=== PATIENT | male | born 1985 | race Caucasian/White ===

== ENCOUNTER → 2016-12-11 | Outpatient (CLI) | payer OTHER ==
--- NOTE | 2016-12-11 23:14 | MR ---
EXAMINATION TYPE: MR lumbar spine wo con DATE OF EXAM: 12/11/2016 COMPARISON: 01/19/2014 HISTORY: Low back pain TECHNIQUE: Multiplanar, multisequence images of the lumbar spine were acquired. Lumbar vertebra have normal alignment. There is some narrowing and decreased signal in the disks at L 3-4 and L5-S1. There are posterior disc herniations at L3-4 L2-3 and to the spinal canal. L2-3 disc h erniation is slightly to the right side. There is no paraspinal mass. There is no compression fractur e. I see no focal bone destruction. The neural foramina are fairly well-maintained. IMPRESSION: There is broad-based posterior right sided L2-3 lumbar disc herniation with impingement on the latera l recess. There is posterior concentric L3 for disc herniation. No significant spinal stenosis. No fr acture. There is developmentally adequate spinal canal and no significant spinal stenosis seen.
== END ==
LOC: RADMRIMAIN 16:36
PROVIDERS: ATTEND Family Medicine
DX: M51.26 Other intervertebral disc displacement, lumbar region (principal)
CPT/HCPCS: 72148

== ENCOUNTER 2020-02-26 04:47 | Emergency (ER) | payer OTHER ==
[2020-02-26 04:57] VITALS: BP 142/89; PULSE 110; RESP 18; TEMP 97.5
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
--- NOTE | 2020-02-26 05:19 | XR ---
EXAM: XR Right Wrist, 2 Views CLINICAL HISTORY: Right wrist pain. TECHNIQUE: Frontal and lateral views of the right wrist. COMPARISON: No previous study. FINDINGS: Bones/joints: No acute fracture, dislocation, or destructive process is noted. The scaphoid bone is unremarkable. Soft tissues: Soft tissues are within normal limits. No radiopaque foreign body. IMPRESSION: No acute fracture, dislocation, or destructive process is noted.
--- NOTE | 2020-02-26 05:19 | XR ---
EXAM: XR Right Forearm, 2 Views CLINICAL HISTORY: Pain. TECHNIQUE: Frontal and lateral views of the right forearm. COMPARISON: No previous study. FINDINGS: Bones/joints: No acute fracture, dislocation, or destructive process. Right elbow joint is intact. Soft tissues: Unremarkable. Other findings: Anatomic alignment of the right forearm is unremarkable. IMPRESSION: No acute fracture or dislocation.
--- NOTE | 2020-02-26 05:20 | XR ---
EXAM: XR Right Hand Complete, 3 or More Views CLINICAL HISTORY: Right hand pain. TECHNIQUE: Frontal, lateral and oblique views of the right hand. COMPARISON: No previous study. FINDINGS: Bones/joints: No acute fracture, dislocation, or destructive process is noted. Soft tissues: The soft tissues are unremarkable. No radiopaque foreign body. Other findings: Anatomic alignment is normal. IMPRESSION: No acute fracture, dislocation, or destructive process.
== END 2020-02-26 05:53 | disposition home or self-care (01) ==
LOC: EC 04:47
DX: M25.531 Pain in right wrist (principal); F17.200 Nicotine dependence, unspecified, uncomplicated; F41.9 Anxiety disorder, unspecified; F31.9 Bipolar disorder, unspecified; Z86.69 Personal history of other diseases of the nervous system and sense organs; M79.7 Fibromyalgia; Z79.899 Other long term (current) drug therapy; Z79.1 Long term (current) use of non-steroidal anti-inflammatories (NSAID); V29.9XXA Motorcycle rider (driver) (passenger) injured in unspecified traffic accident, initial encounter; Y92.89 Other specified places as the place of occurrence of the external cause
CPT/HCPCS: 99284

== ENCOUNTER 2020-06-20 12:36 | Emergency (ER) | payer OTHER ==
[2020-06-20 12:48] VITALS: RESP 18; TEMP 98
[2020-06-20] MEDS ORDERED: DIPH,PERTUS(ACELL)TETVAC-LF 0.5 ML VIAL IM ONE (13:32)
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
[2020-06-20 15:03] VITALS: BP 116/79; PULSE 86
[2020-06-20] MEDS ORDERED: LIDOCAINE 1% INJ 10MG/ML (20 ML MDV) SQ ONE (15:15)
[2020-06-20] MEDS ORDERED: CEPHALEXIN 500MG STARTER PACK 4 CAP BTL PO STA (15:34)
== END 2020-06-20 15:43 | disposition home or self-care (01) ==
LOC: EC 12:36
DX: S02.19XA Other fracture of base of skull, initial encounter for closed fracture (principal); S01.112A Laceration without foreign body of left eyelid and periocular area, initial encounter; M54.2 Cervicalgia; Z23 Encounter for immunization; F31.9 Bipolar disorder, unspecified; F41.9 Anxiety disorder, unspecified; F17.200 Nicotine dependence, unspecified, uncomplicated; Z79.899 Other long term (current) drug therapy; V43.52XA Car driver injured in collision with other type car in traffic accident, initial encounter; Y92.410 Unspecified street and highway as the place of occurrence of the external cause
CPT/HCPCS: 71046; 72125; 70486; 90715; 70450; 99284; 90471; 12011; J2001

== ENCOUNTER 2021-01-09 12:47 | Emergency (ER) | payer OTHER ==
[2021-01-09] MEDS ORDERED: LORazepam 1 MG TAB PO STA (13:15)
[2021-01-09 13:36] VITALS: BP 117/66; PULSE 107; RESP 19; TEMP 98.6
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
== END 2021-01-09 14:53 | disposition home or self-care (01) ==
LOC: EC 12:47
DX: F41.0 Panic disorder [episodic paroxysmal anxiety] (principal); F41.9 Anxiety disorder, unspecified; F31.9 Bipolar disorder, unspecified; F17.200 Nicotine dependence, unspecified, uncomplicated; F12.90 Cannabis use, unspecified, uncomplicated; Z90.79 Acquired absence of other genital organ(s); Z79.899 Other long term (current) drug therapy
CPT/HCPCS: 99283